=== PATIENT | male | born 1950 | race Caucasian/White ===

== ENCOUNTER 2019-10-30 11:29 | Emergency (ER) | payer MEDICARE, MEDICAID, SELFPAY ==
[2019-10-30 11:32] VITALS: BP 101/56; PULSE 63; RESP 18; TEMP 36.4; O2SAT 95; BMI 41.8
--- NOTE | 2019-10-30 11:42 | ED_ITS ---
Entered by Tania Echevarria, acting as scribe for Helen Gaspar HPI - General Adult General: Chief complaint: General Medical Stated complaint: peg tube clogged and red around site Time Seen by Provider: 10/30/19 11:42 Source: patient Mode of arrival: EMS Limitations: no limitations History of Present Illness: HPI narrative: Fred is a very nice 69-year-old male who comes in with a report of a clogged PEG tube. 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 The patient states the PEG tube is been in place for 2 months. He says just recently have a not been able to use it. He was sent here to have it evaluated and possibly changed. He denies any abdominal pain, vomiting, fever, back pain, or any other complaints. MD complaint: picc line clogged Onset (ago): month(s) (2) Associated symptoms: Deny chest pain, confusion, diaphoresis, dyspnea, headache(s), malaise, nausea, rash, palpitations, syncope or vomiting Review of Systems General: Reports: other (negative unless marked) Const: Denies: malaise or diaphoresis Eyes: Denies: change in vision or blurry vision ENMT: Denies: throat pain, painful swallowing, hoarseness, ear pain, ear discharge, Change in hearing or nasal discharge Card: Denies: chest pain, palpitations or syncope Resp: Denies: shortness of breath GI: Denies: nausea or vomiting : Denies: flank pain, difficulty urinating, painful urination, urinary frequency, urinary urgency, decreased urine ouput, urinary incontinence or blood in urine Musc: Denies: neck pain, back pain, extremity pain, extremity swelling, joint pain, joint swelling, joint warmth or joint stiffness Skin/Breast: Denies: rash Neuro: Denies: headache or confusion Endo: Denies: excessive thirst, tired all the time, cold intolerance, excessive sweating, flushing or hot flashes Prabhakar/Lymph: Denies: easy bruising, easy bleeding, petechiae or enlarged lymph nodes All/Imm: Denies: hives, throat swelling, tongue swelling, facial swelling or acute wheezing PFSH ED PFSH: Statuses (acute, chronic, etc) shown below reflect problem list status as previously entered and may not be historically accurate Medical History (Updated 10/30/19 @ 13:00 by Helen Gaspar) Congestive heart failure (Acute) COPD (chronic obstructive pulmonary disease) (Acute) Hyperlipidemia (Acute) Hypertension (Acute) Osteoarthritis (Acute) 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) Visit for feeding tube placement (Acute) Social History Smoking and tobacco status: never smoked Physical Exam Const: COMMON NORMALS: no apparent distress, oriented x3, no limitations, he althy appearing and well nourished EXAM LIMITATIONS: no altered mental status GENERAL APPEARANCE: cooperative, well kempt and well developed ORIENTATION/CONSCIOUSNESS: Yes awake HENMT: COMMON NORMALS: normocephalic, head/scalp atraumatic, hearing grossly normal bilaterally, external ears normal, EAC's normal, external nose normal and moist oral mucous membranes HEAD & SCALP: normal to inspection, normocephalic and atraumatic FACE & SINUS: normal facial exam and face symmetric NOSE: external nose normal and nares normal EXTERNAL EAR: Yes external ears normal EXTERNAL AUDITORY CANAL: EAC's normal MOUTH: oral and palatal mucosa normal and tongue normal Eye: COMMON NORMALS: PERRL, EOMs intact bilaterally, conjunctivae normal and no scleral icterus GENERAL EYE: normal appearance of both eyes and normal light reflex CONJUNCTIVA: Yes conjunctivae normal SCLERA: sclerae normal CORNEA: Yes corneas normal PUPIL: Yes PERRL DIRECT OPHTHALMOSCOPY: Yes normal light reflex Neck/C-Spine: COMMON NORMALS: full ROM, no lymphadenopathy, supple, no meningeal signs and no JVD GENERAL: Yes normal visual inspection and Yes trachea midline CERVICAL SPINE: Yes cervical ROM normal Chest: COMMONS NORMALS: inspection of chest normal and palpation of chest normal Resp: COMMON NORMALS: normal respiratory effort, no retractions, no use of accessory muscles and clear to auscultation bilaterally EFFORT & INSPECTION: Yes able to speak in complete sentences AUSCULTATION: clear to auscultation bilaterally Cardio: COMMON NORMALS: no JVD, regular rate, regular rhythm, S1 normal heart sound, S2 normal heart sound, no gallops, no clicks, no murmurs and no rub JUGULAR VENOUS DISTENTION: no JVD RATE: regular rate RHYTHM: regular rhythm HEART SOUNDS: S1 normal and S2 normal GI: COMMON NORMALS: soft to palpation, non-tender, no hepatosplenomegaly and no masses INSPECTION: Yes normal to inspection and Yes other (PEG tube in place. No signs of irritation at the skin.) PALPATION: Yes soft and Yes no hepatosplenomegaly : COMMON NORMALS: Yes no CVA tenderness BLADDER/KIDNEY EXAM: Yes no CVA tenderness Back/Pelvis: COMMON NORMALS: no CVA tenderness, thoracic and lumbar spine normal to inspection, no thoracic nor lumbar tenderness and thoraco-lumbar ROM normal Extremity: COMMON NORMALS: normal to inspection, full ROM, normal capillary refill, no joint enlargement, no clubbing, cyanosis or edema and no calf tenderness Neuro: COMMON NORMALS: oriented x3, CN's II-XII intact bilaterally, moves all extremities, no focal motor deficits and no sensory deficits noted MENINGEAL SIGNS: Yes no meningeal signs Psych: COMMON NORMALS: mental status grossly normal, thought process normal, cooperative, affect normal, speech normal and activity/motor behavior normal APPEARANCE: Yes well kempt SPEECH: Yes normal speech THOUGHT PROCESS: normal thought process Skin: COMMON NORMALS: no rashes or lesions noted, skin turgor normal, no jaundice, no petechiae and no mottling GENERAL SKIN EXAM: no rashes or lesions noted and turgor normal Course Vital Signs: Vital signs: Vital Signs Temperature 97.6 F 10/30/19 11:32 Pulse Rate 63 10/30/19 11:32 Respiratory Rate 18 10/30/19 11:32 Blood Pressure 101/56 10/30/19 11:32 Pulse Oximetry 95 10/30/19 11:32 MDM - General Adult MDM Narrative: Medical decision making narrative: Fred comes in with a report of concern of his PEG tube being clogged. His PEG tube flushes easily here. There is no evidence of leaks. He has expressed that his [facility]dc wants this changed to a different type of tube. I reviewed the case in full with Dr. Shen who placed the tube initially and he states even if there is a small pinhole leak tape can cover it and he would prefer the patient not have t his changed out as it is a new PEG tube. If there is any other problems with obstruction he can return but I feel he should be discharged back to the [facility]. I see no sign of peritonitis, vomiting, obstruction or other causes for life-threatening abdominal pain. I will go ahead and discharge the patient per Dr. Shen's recommendation. Discharge Plan Discharge Patient Disposition: [facility] Clinical Impression: Visit for feeding tube placement Condition: Stable Discharge Orders: Discharge Order (Routine); Ordered 10/30/19 Ordered By: Helen Gaspar Discharge Diet: Usual diet Discharge Activity: Resume usual activity Activity Restrictions/Additional Instructions: Please return to the ER immediately for any of the signs or symptoms listed on your discharge instruction sheets, worsening/changing of your symptoms, you are not getting better as quickly as expected, or for ANY other cause or concerns. Return to the ER if your PEG tube has any further problems. Otherwise follow-up with Dr. Shen for reevaluation. Coding Level of Care Code ED Counseling Department Chair for Chg Fwd Exam Problem Focused The documentation recorded by the Wale luu Stephanie Lyn, accurately reflects the service I personally performed and the decisions made by me, Helen Gaspar
--- NOTE | 2019-10-30 13:04 | PC.NURSE ---
peg tube flushes without difficulty, no leaking noted. area around insertion site appears neglected, with foul odor and pus like drainage. Site cleansed and covered with gauze dressing.
[2019-10-30 14:06] VITALS: BP 147/74; PULSE 76; RESP 20; O2SAT 94
[2019-10-30 14:09] VITALS: BP 142/74; PULSE 62; O2SAT 94
== END 2019-10-30 14:16 | disposition skilled nursing facility (03) ==
LOC: ER 13:07
PROVIDERS: Emergency Provider Emergency Medicine
DX: Z43.1 Encounter for attention to gastrostomy (principal); I11.0 Hypertensive heart disease with heart failure; I50.9 Heart failure, unspecified; J44.9 Chronic obstructive pulmonary disease, unspecified; E78.5 Hyperlipidemia, unspecified; M19.90 Unspecified osteoarthritis, unspecified site; Z85.818 Personal history of malignant neoplasm of other sites of lip, oral cavity, and pharynx
CPT/HCPCS: 99281

== ENCOUNTER 2019-11-04 11:39 | Day surgery (SDC) | payer MEDICARE, MEDICAID, SELFPAY ==
[2019-11-04] VITALS (8 sets, daily range): BP systolic 116–151; BP diastolic 46–72; PULSE 63–80; RESP 18–22; TEMP 36.4–36.9; O2SAT 93–100; BMI 40.7
--- NOTE | 2019-11-04 11:48 | PC.NURSE ---
Patient states he is not suicidal, just wishes he didnt have to live with cancer. wishes he was well.
--- NOTE | 2019-11-04 12:03 | ED_ITS ---
Entered by Claudia Felix, acting as scribe for Mahendra Parkinson DO HPI - General Adult General: Chief complaint: General Medical Stated complaint: Clogged PEG tube/poss. infected Time Seen by Provider: 11/04/19 11:59 Source: patient Mode of arrival: EMS Limitations: no limitations History of Present Illness: HPI narrative: 69 yo Male presents to ED with complaint of clogged PEG tube. Pt states that he needs a new PEG tube because his is clogged and has a pin hole in it. MD complaint: Clogged PEG tube Associated symptoms: Deny chest pain, dyspnea, malaise, nausea, rash or vomiting Review of Systems General: Reports: 10 or more systems reviewed and unremarkable except in HPI and below Const: Denies: malaise ENMT: Denies: throat pain, ear pain, nasal discharge or nasal congestion Card: Denies: chest pain Resp: Denies: shortness of breath GI: Denies: nausea or vomiting : Denies: flank pain, painful urination, urinary frequency or urinary urgency Skin/Breast: Denies: rash, redness or skin tenderness PFSH ED PFSH: Statuses (acute, chronic, etc) shown below reflect problem list status as previously entered and may not be historically accurate Medical History Congestive heart failure (Acute) COPD (chronic obstructive pulmonary disease) (Acute) Hyperlipidemia (Acute) Hypertension (Acute) Osteoarthritis (Acute) 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) Visit for feeding tube placement (Resolved) We will plan to discharge patient to [facility] today Social History Smoking and tobacco status: never smoked Physical Exam Const: COMMON NORMALS: no apparent distress GENERAL APPEARANCE: cooperative and comfortable ORIENTATION/CONSCIOUSNESS: Yes awake, Yes oriented to person, Yes oriented to place and Yes oriented to time HENMT: COMMON NORMALS: normocephalic, head/scalp atraumatic, hearing grossly normal bilaterally, external ears normal, EAC's normal, TM's normal bilaterally, nasal mucous membranes and turbinates normal, moist oral mucous membranes and oropharynx normal HEAD & SCALP: normocephalic and atraumatic NOSE: nasal mucous membranes and turbinates normal EXTERNAL EAR: Yes external ears normal EXTERNAL AUDITORY CANAL: EAC's normal TYMPANIC MEMBRANE: TM's normal bilaterally Eye: COMMON NORMALS: PERRL, EOMs intact bilaterally, conjunctivae normal and no scleral icterus CONJUNCTIVA: Yes conjunctivae normal PUPIL: Yes PERRL Neck/C-Spine: COMMON NORMALS: full ROM, no lymphadenopathy, supple and no JVD Lymph: LYMPHATIC: no lymphadenopathy noted and no lymphedema noted Resp: COMMON NORMALS: normal respiratory effort, no retractions, no use of accessory muscles and clear to auscultation bilaterally AUSCULTATION: clear to auscultation bilaterally Cardio: COMMON NORMALS: no JVD, regular rate, regular rhythm and no murmurs RATE: regular rate RHYTHM: regular rhythm GI: COMMON NORMALS: normal to inspection, nondistended, normoactive bowel sounds, soft to palpation, non-tender, no hepatosplenomegaly and no masses PALPATION: Yes soft and Yes no hepatosplenomegaly Extremity: COMMON NORMALS: normal to inspection, normal capillary refill, no clubbing, cyanosis or edema, no calf tenderness and no pedal edema Neuro: SENSORIUM/ORIENTATION: Yes oriented to person, Yes oriented to place and Yes oriented to time Skin: COMMON NORMALS: no rashes or lesions noted GENERAL SKIN EXAM: no rashes or lesions noted Course ED course: Examination of the abdomen there is a lot of mucousy buildup around the stoma for the PEG tube very mild localized erythema no induration do not get the sense its its infected. Patient reports it has been in place for 4 to 5 months at least. It was removed and then immediately attempted to place a PEG tube with the balloon we are not able to successfully do so after several attempts I contacted contacted Dr. Reina. Dr. Miguel came to the exam room he made multiple attempts as well with coud? catheter is red rubber Peters's as well as the ED to PEG tube and he could not get it replaced. He is going to go and take the patient to outpatient surgery do an EGD to replace the tube. He was discharged from the emergency room and transferred over to outpatient surgery. Vital Signs: Vital signs: Vital Signs Temperature 98.3 F 11/05/19 10:10 Pulse Rate 69 11/05/19 10:10 Respiratory Rate 18 11/05/19 10:10 Blood Pressure 124/62 11/05/19 10:10 Pulse Oximetry 93 11/05/19 10:10 Discharge Plan Discharge Patient Disposition: Home, Self-Care Clinical Impression: Visit for feeding tube placement Condition: Stable Discharge Orders: Discharge Order (Routine); Ordered 11/04/19 Ordered By: Evan Miguel Discharge Diet: per previous recs including PEG tube feeds Discharge Activity: Resume usual activity Discharge Date/Time: 11/04/19 13:51 Sign Out Sign Out Data: Patient Sign Out occurred on 11/04/19 at 13:29. Patient's care was discussed, and care was transferred from Mahendra Parkinson DO to Helen Gaspar. Sign Out Comment: holding for outpt surgery Last updated by Maehndra Parkinson DO at 11/04/19 13:19 Coding Level of Care Code ED Postal Transportation Clerk for Chg Fwd Exam Problem Focused The documentation recorded by the Isidro luu Carmen, accurately reflects the service I personally performed and the decisions made by , Mahendra Parkinson DO Nov 04, 2019 13:35
--- NOTE | 2019-11-04 13:48 | P.ANES_ITS ---
Pre-Anesthetic Assessment Pre-Anesthetic Assessment: Height/Weight: Height 1.91 m Weight 147.871 kg Temp Pulse Resp BP Pulse Ox 97.6 F 63 22 H 128/70 93 11/04/19 11:43 11/04/19 11:43 11/04/19 11:43 11/04/19 11:43 11/04/19 11:43 Preop Diagnosis: dislodged PEG tube Familial anesthetic complications: No trouble Was Beta Guerda taken within 24 hours: Yes Last intake: Yogurt cup at 1000 today Social: Social History: No alcohol and No tobacco Exam: Pre-Anes Outpt Exam: alert, oriented x 3, clear to auscultation bilaterally and regular rate & rhythm Airway: Cervical ROM: WNL MP: 4 Additional comments: edentulous Pulmonary: Pulmonary: Asthma and COPD CV/HEM: CV/HEM: CHF and HTN : : None reported Hepatic: Hepatic: None reported GI: Comments: tonsillar cancer - requirng peg tube. has trouble swallowing due to pain/burning Metabolic: Metabolic: Morbid obesity and Thyroid Musc/skel: Comments: patient is in wheelchair - because of weakness (unknown etiology) Neuropsych: Neuropsych: None reported Anesthetic Plan: ASA status: III Anesthesia: General Risk of > 500 ml blood loss (7ml/kg in children): No Other Pertinent Information: Patient not adequate NPO, spoke with surgeon trevon joy waiting at least 6 hours. Concern for loosing the tract and patient therefore requiring more invasive procedure if too much time elapses. 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
--- NOTE | 2019-11-04 14:26 | P.HP_ITS ---
Providers/Chief Complaint Primary Care Provider: Loyd Urbina MD Chief Complaint: Clogged PEG tube/poss. infected History of Present Illness Fred Watson is a 69 year old male patient [facility] resident presents to the emergency department with dysfunctional feeding tube, that he had placed in the form of a PEG tube back in June 2019, patient gives history of tonsillar cancer, that he had to receive radiation and last dose was June 17, 2019, he developed burning sensation in his throat and he is not able to swallow with ease so that is why he got the PEG tube. Multiple attempts was done by Dr. Estrada in the ER and myself to try to follow the track and put another new feeding tube in but that was not successful. So I did certified travel counselor the patient to have it done under direct visualization using an EGD. Review of Systems Const: Denies: fever, chills, body aches or malaise Card: Denies: chest pain Resp: Denies: shortness of breath GI: Denies: abdominal pain, nausea, vomiting, difficulty swallowing, diarrhea, constipation or blood in stool Neuro: Denies: headache Psych: Denies: anxiety or depression Medications/Allergies Home Medications Medication Instructions Recorded Confirmed Last Taken Type hydrocortisone 1 applic TOPICAL DAILY PRN 11/04/19 11/04/19 Unknown History nut.tx,spec.frm,l-fr,iron-fos 60 ea PO TID 11/04/19 11/04/19 Unknown History [TwoCal HN] Allergies Allergy/AdvReac Type Severity Reaction Status Date / Time neomycin Allergy ALGY-Rash Verified 10/30/19 11:40 Sulfa (Sulfonamide Allergy ALGY-Anaphy Verified 10/30/19 11:40 Antibiotics) laxis PFSH Acute PFSH: Statuses (acute, chronic, etc) shown below reflect problem list status as previously entered and may not be historically accurate Medical History Congestive heart failure (Acute) COPD (chronic obstructive pulmonary disease) (Acute) Hyperlipidemia (Acute) Hypertension (Acute) Osteoarthritis (Acute) 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) Visit for feeding tube placement (Acute) Social History Smoking and tobacco status: never smoked Vitals/I&O/Wt Last Vital Signs Temp 98.4 F 11/04/19 13:54 Pulse 65 11/04/19 13:54 Resp 18 11/04/19 13:54 BP 119/46 11/04/19 13:54 Pulse Ox 94 11/04/19 13:54 Weight last 48 hrs Weight 326 lb Physical Exam Const: COMMON NORMALS: no apparent distress and oriented x3 GENERAL APPEARANCE: cooperative ORIENTATION/CONSCIOUSNESS: Yes awake, Yes oriented to person, Yes oriented to place and Yes oriented to time HENMT: COMMON NORMALS: normocephalic HEAD & SCALP: normocephalic Eye: COMMON NORMALS: PERRL and no scleral icterus PUPIL: Yes PERRL Lymph: LYMPHATIC: no lymphadenopathy noted Chest: COMMONS NORMALS: inspection of chest normal Resp: COMMON NORMALS: normal respiratory effort and clear to auscultation bilaterally AUSCULTATION: clear to auscultation bilaterally Cardio: COMMON NORMALS: S1 normal heart sound and S2 normal heart sound; negative for no murmurs HEART SOUNDS: S1 normal and S2 normal GI: COMMON NORMALS: soft to palpation; negative for no hepatosplenomegaly INSPECTION: Yes normal to inspection PALPATION: Yes soft, No firm, No tender, No guarding, No rigid, No no hepatosplenomegaly and Yes other (Site of the feeding tube at the upper abdomen with track) OTHER: Morbidly obese Neuro: COMMON NORMALS: oriented x3 SENSORIUM/ORIENTATION: Yes oriented to person, Yes oriented to place and Yes oriented to time Psych: COMMON NORMALS: mental status grossly normal Skin: COMMON NORMALS: no rashes or lesions noted GENERAL SKIN EXAM: no rashes or lesions noted A&P Assessment and plan (1) Visit for feeding tube placement: Plan of care; After thorough history and physical examination and reviewing the chart, plan to perform a diagnostic esophagogastroduodenoscopy and possible biopsy in the operating room due patient's medical comorbioddities including morbid Obesity and potential airway compromise the plan to replace the feeding tube Informed consent per chart were,Indications, risks, benefits, and alternatives were all discussed with the patient and did agree to proceed. Status: Acute Code(s): Z46.59 - Encounter for fitting and adjustment of other gastrointestinal appliance and device Attestations Medical Necessity Statement*: Outpatient in a bed Coding Level of Care Code Acute Manufacturing Sales Representative for Chg Fwd Diagnoses Visit for feeding tube placement Z46.59
[2019-11-04] MEDS: sodium chloride 0.9% 1,000 ML 30 ML IV (14:33)
[2019-11-04] MEDS: temazepam 15 mg Capsule PO (20:04)
[2019-11-04] MEDS: metoprolol tartrate 50 mg Tablet PO (20:04)
[2019-11-04] MEDS: docusate sodium 100 mg Capsule 200 MG PO (20:04)
[2019-11-04] MEDS: nystatin 100,000 unit/mL UDC 5 mL 500000 UNIT PO (20:14)
--- NOTE | 2019-11-05 06:01 | P.PN_ITS ---
Subjective Subjective: Interval history: Patient overall feels better, patient was kept in the hospital due to logistics as there was a ride but there was no oxygen supply, that I elected for patient's utmost safety to keep him overnight as an outpatient in a bed. He had uneventful night and the PEG tube was reinserted Patient does not feel hungry today Vitals/I&O/Wt Last Vital Signs Temp 97.5 F L 11/04/19 17:05 Pulse 74 11/04/19 17:05 Resp 20 H 11/04/19 17:05 BP 116/47 11/04/19 17:05 Pulse Ox 96 11/04/19 17:05 11/04/19 11/04/19 11/05/19 14:59 22:59 06:59 Intake Total 0 / 0 Output Total 300 / 300 25 / 325 Balance -300 / -300 -25 / -325 Weight last 48 hrs Weight 326 lb Physical Exam Const: COMMON NORMALS: no apparent distress and oriented x3 GENERAL APPEARANCE: cooperative ORIENTATION/CONSCIOUSNESS: Yes awake, Yes oriented to person, Yes oriented to place and Yes oriented to time HENMT: COMMON NORMALS: normocephalic HEAD & SCALP: normocephalic Eye: COMMON NORMALS: PERRL and no scleral icterus PUPIL: Yes PERRL Chest: COMMONS NORMALS: inspection of chest normal Resp: COMMON NORMALS: normal respiratory effort and clear to auscultation bilaterally AUSCULTATION: clear to auscultation bilaterally Cardio: COMMON NORMALS: S1 normal heart sound and S2 normal heart sound; negative for no murmurs HEART SOUNDS: S1 normal and S2 normal GI: COMMON NORMALS: soft to palpation; negative for no hepatosplenomegaly INSPECTION: Yes normal to inspection PALPATION: Yes soft, No firm, No tender, No guarding, No rigid, No no hepatosplenomegaly and Yes other (PEG tube in place skin level at 8 cm) Neuro: COMMON NORMALS: oriented x3 SENSORIUM/ORIENTATION: Yes oriented to person, Yes oriented to place and Yes oriented to time Psych: COMMON NORMALS: mental status grossly normal Skin: COMMON NORMALS: no rashes or lesions noted GENERAL SKIN EXAM: no rashes or lesions noted A&P Assessment and plan (1) Visit for feeding tube placement: From surgical standpoint of view [facility] can [facility] PEG tube instructions and education Patient can resume PEG tube feeds All questions have been answered and all concerns have been addressed to patient's satisfaction. Logistics will be addressed to make sure patient's transportation is safe including oxygen supply Status: Resolved Code(s): Z46.59 - Encounter for fitting and adjustment of other gastrointestinal appliance and device Attestations Medical Necessity Statement*: OutPatient in a bed Coding Level of Care Code Acute Airport Operations Specialist for Chg Fwd Diagnoses Visit for feeding tube placement Z46.59
--- NOTE | 2019-11-05 06:13 | PM.SDS ---
Short Stay Summary Providers Date of Admit/Discharge: 11/05/19 Attending Provider: Evan Miguel MD Primary Care Provider: Loyd Urbina MD Chief Complaint: Clogged PEG tube/poss. 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 Patient undergone the procedure without event and he did receive a new PEG tube 20 Estonian Review of Systems Const: Denies: fever, chills, body aches or malaise Card: Denies: chest pain Resp: Denies: shortness of breath GI: Denies: abdominal pain, nausea, vomiting, difficulty swallowing, diarrhea, constipation or blood in stool Neuro: Denies: headache Psych: Denies: anxiety or depression Home Meds/Allergies Home Medications and Allergies Home Medications Medication Instructions Recorded Confirmed Type Magic Mouthwash 5 ml PO Q6H PRN 10/30/19 11/04/19 History acetaminophen [Tylenol] 325 mg PO Q4H PRN 10/30/19 11/04/19 History albuterol sulfate 1 puff INHALATION 6XD PRN 10/30/19 11/04/19 History alum-mag hydroxide-simeth [Mylanta 30 ml PO TID PRN 10/30/19 11/04/19 History Maximum Strength] aripiprazole [Abilify] 5 mg PO BEDTIME 10/30/19 11/04/19 History aspirin 81 mg PO DAILY 10/30/19 11/04/19 History bisacodyl [Dulcolax (bisacodyl)] 10 mg [place] DAILY PRN 10/30/19 11/04/19 History bisacodyl [Dulcolax (bisacodyl)] 20 mg PO DAILY PRN 10/30/19 11/04/19 History budesonide 0.5 mg INHALATION BID 10/30/19 11/04/19 History docusate sodium [Colace] 200 mg PO BEDTIME 10/30/19 11/04/19 History escitalopram oxalate [Lexapro] 20 mg PO DAILY 10/30/19 11/04/19 History fluconazole [Diflucan] 150 mg PO DAILY 10/30/19 11/04/19 History furosemide [Lasix] 40 mg PO DAILY 10/30/19 11/04/19 History ipratropium-albuterol 3 ml INHALATION DAILY PRN 10/30/19 11/04/19 History ipratropium-albuterol [Combivent 1 puff INHALATION QID 10/30/19 11/04/19 History Respimat] levothyroxine 100 mcg PO DAILY 10/30/19 11/04/19 History magnesium citrate 300 ml PO BID PRN 10/30/19 11/04/19 History magnesium hydroxide [Milk of 30 ml PO BID PRN 10/30/19 11/04/19 History Magnesia] metoprolol tartrate 50 mg PO BID 10/30/19 11/04/19 History nystatin 5 ml PO QID 10/30/19 11/04/19 History ondansetron HCl [Zofran] 4 mg PO Q8H PRN 10/30/19 11/04/19 History oxycodone 10 mg PO Q6H PRN 10/30/19 11/04/19 History pantoprazole 40 mg PO DAILY 10/30/19 11/04/19 History temazepam 15 mg PO BEDTIME 10/30/19 11/04/19 History hydrocortisone 1 applic TOPICAL DAILY PRN 11/04/19 11/04/19 History nut.tx,spec.frm,l-fr,iron-fos 60 ea PO TID 11/04/19 11/04/19 History [TwoCal HN] Allergies Allergy/AdvReac Type Severity Reaction Status Date / Time neomycin Allergy ALGY-Rash Verified 10/30/19 11:40 Sulfa (Sulfonamide Allergy ALGY-Anaphy Verified 10/30/19 11:40 Antibiotics) laxis PFSH Acute PFSH: Statuses (acute, chronic, etc) shown below reflect problem list status as previously entered and may not be historically accurate Medical History Congestive heart failure (Acute) COPD (chronic obstructive pulmonary disease) (Acute) Hyperlipidemia (Acute) Hypertension (Acute) Osteoarthritis (Acute) 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) Visit for feeding tube placement (Resolved) Social History Smoking and tobacco status: never smoked Vitals/I&O/Wt Last Vital Signs Temp 97.5 F L 11/04/19 17:05 Pulse 74 11/04/19 17:05 Resp 20 H 11/04/19 17:05 BP 116/47 11/04/19 17:05 Pulse Ox 96 11/04/19 17:05 11/04/19 11/04/19 11/05/19 14:59 22:59 06:59 Intake Total 0 / 0 Output Total 300 / 300 25 / 325 Balance -300 / -300 -25 / -325 Weight last 48 hrs Weight 326 lb Physical Exam Const: COMMON NORMALS: no apparent distress and oriented x3 GENERAL APPEARANCE: cooperative ORIENTATION/CONSCIOUSNESS: Yes awake, Yes oriented to person, Yes oriented to place and Yes oriented to time Resp: COMMON NORMALS: normal respiratory effort and clear to auscultation bilaterally AUSCULTATION: clear to auscultation bilaterally GI: COMMON NORMALS: soft to palpation; negative for no hepatosplenomegaly INSPECTION: Yes normal to inspection PALPATION: Yes soft, No firm, No tender, No guarding, No rigid and No no hepatosplenomegaly Neuro: COMMON NORMALS: oriented x3 SENSORIUM/ORIENTATION: Yes oriented to person, Yes oriented to place and Yes oriented to time Psych: COMMON NORMALS: mental status grossly normal Skin: GENERAL SKIN EXAM: other (PEG tube insertion at 8 cm skin level without complication) SSS Data Data Completed and Pending: Pending at discharge Category Date Time Status H. Pylori / BRITTANY T est Routine Lab 11/04/19 15:56 Ordered Diagnoses at Discharge Discharge Diagnosis (1) Visit for feeding tube placement: Status: Resolved Problem details: We will plan to discharge patient to [facility] today Discharge Plan Discharge Patient Disposition: Home, Self-Care Condition: Stable Prescriptions: No Action furosemide [Lasix] 40 mg Tablet 40 mg PO DAILY RF: 0 ipratropium-albuterol 0.5 mg-3 mg(2.5 mg base)/3 mL Solution For Nebulization 3 ml INHALATION DAILY PRN (Reason: Shortness Of Breath) RF: 0 ondansetron HCl [Zofran] 4 mg Tablet 4 mg PO Q8H PRN (Reason: Nausea) RF: 0 levothyroxine 100 mcg Tablet 100 mcg PO DAILY RF: 0 temazepam 15 mg Capsule 15 mg PO BEDTIME RF: 0 magnesium hydroxide [Milk of Magnesia] 400 mg/5 mL Suspension 30 ml PO BID PRN (Reason: Constipation) RF: 0 bisacodyl [Dulcolax (bisacodyl)] 10 mg Suppository 10 mg [place] DAILY PRN (Reason: Constipation) RF: 0 pantoprazole 40 mg Tablet,Delayed Release (Dr/Ec) 40 mg PO DAILY RF: 0 metoprolol tartrate 50 mg Tablet 50 mg PO BID RF: 0 docusate sodium [Colace] 100 mg Capsule 200 mg PO BEDTIME RF: 0 budesonide 0.5 mg/2 mL Suspension For Nebulization 0.5 mg INHALATION BID RF: 0 magnesium citrate Solution 300 ml PO BID PRN (Reason: Constipation) RF: 0 aspirin 81 mg Tablet,Chewable 81 mg PO DAILY RF: 0 bisacodyl [Dulcolax (bisacodyl)] 5 mg Tablet,Delayed Release (Dr/Ec) 20 mg PO DAILY PRN (Reason: Constipation) RF: 0 albuterol sulfate 90 mcg/actuation Hfa Aerosol Inhaler 1 puff INHALATION 6XD PRN (Reason: Shortness Of Breath) RF: 0 Mylanta Maximum Strength 400-400-40 mg/5 mL Suspension 30 ml PO TID PRN (Reason: Gastric Reflux) RF: 0 escitalopram oxalate [Lexapro] 20 mg Tablet 20 mg PO DAILY RF: 0 aripiprazole [Abilify] 5 mg Tablet 5 mg PO BEDTIME RF: 0 acetaminophen [Tylenol] 325 mg Capsule 325 mg PO Q4H PRN (Reason: Pain) RF: 0 oxycodone 10 mg Tablet 10 mg PO Q6H PRN (Reason: Pain) RF: 0 Combivent Respimat 20-100 mcg/actuation Mist 1 puff INHALATION QID RF: 0 Magic Mouthwash 5 ml PO Q6H PRN (Reason: MOUTH SORES) RF: 0 nystatin 100,000 unit/mL Suspension 5 ml PO QID RF: 0 fluconazole [Diflucan] 150 mg Tablet 150 mg PO DAILY RF: 0 hydrocortisone 1 % Cream 1 applic TOPICAL DAILY PRN (Reason: buttocks) RF: 0 TwoCal HN 0.08-2 gram-kcal/mL Liquid 60 ea PO TID RF: 0 Discharge Orders: Discharge Order (Routine); Ordered 11/04/19 Ordered By: Evan Miguel Discharge Diet: per previous recs including PEG tube feeds Discharge Activity: Resume usual activity Activity Restrictions/Additional Instructions: Discharge to outpatient surgery. Dr. Huertas will replace the feeding tube endoscopically. Patient undergone placement of PEG tube and will be able to be discharged to [facility] again, PEG tube care instructions Attestations Medical Necessity Statement*: Outpatient in a bed Time Spent in Patient Care*: less than 30 min Quality Metrics Clinical Quality Measures: During this hospital stay, did patient experience: None Coding Level of Care Code Acute Front Office Administrator for [facility] Fwd Diagnoses Visit for feeding tube placement Z46.59
[2019-11-05 08:27] VITALS: PULSE 68; RESP 17; O2SAT 94
[2019-11-05] MEDS: budesonide 0.5 mg/2 mL Neb INHALATION (08:30)
[2019-11-05] MEDS: ipratropium-albuterol 3 mL Neb INHALATION (08:31)
[2019-11-05 08:34] VITALS: PULSE 72
[2019-11-05] MEDS: fluconazole 100 mg Tablet 150 MG PO (08:43)
[2019-11-05] MEDS: escitalopram 10 mg Tablet 20 MG PO (08:44)
[2019-11-05] MEDS: FUROsemide 40 mg Tablet PO (08:44)
[2019-11-05] MEDS: levothyroxine 100 mcg Tablet PO (08:44)
[2019-11-05] MEDS: aspirin 81 mg Chew Tablet PO (08:44)
[2019-11-05] MEDS: pantoprazole DR 40 mg Tablet PO (08:44)
[2019-11-05] MEDS: ARIPiprazole 10 mg Tablet 5 MG PO (08:44)
[2019-11-05] MEDS: metoprolol tartrate 50 mg Tablet PO (08:44)
[2019-11-05] MEDS: nystatin 100,000 unit/mL UDC 5 mL 500000 UNIT PO ×2 (08:45→11:59)
[2019-11-05 10:10] VITALS: BP 124/62; PULSE 69; RESP 18; TEMP 36.8; O2SAT 93
--- NOTE | 2019-11-05 10:54 | PC.CHAP ---
Pastoral Care Encounter/Spiritual Assessment Type of Contact [] Declined field producer visit [] Patient/Family/Request visit [] Outpatient visit [x] Follow-up visit [] Physician referral [] Code/Alert [] Routine visit [] Staff referral [] Actively dying [] Patient sleeping [] Family support [] [] Out of room [] Palliative care [] [] Receiving care in room [] Pre-surgical visit [] Trauma [] Long length of stay [] ICU visit [] Other: Relational/Emotional Strength [] Patient feels connected with others/family/visitors/staff [] Distress [] Loneliness/isolation [] Abandonment Spirituality of Patient [] Person of Catherine [] Attends Mormonism of their Catherine [] Believes in Prayer [] Reads Bible or Jew materials [] There are Spiritual issues to be addressed [employer] Interventions [] Prayer [] Active listening [] Non-anxious presence [] Spiritual/emotional support [] Crisis/trauma care [] Spiritual counseling [] Bereavement support [] Provided bereavement packet [] Provided Bible/devotional materials [] Provided toy/stuffed animal, coloring book to patient or family member [] Completed spiritual assessment [] Provided Communion [] Anointing/Ewing [] Salvation [] Other: Impact on Illness or Injury [] Angry [] Fearful [] Anxious [] Often cries [] Exhaustion [] Unable to work [] Unable to attend caodaism [] Unable to walk/stand [] Unable to read [] Unable to drive [] Unable to eat/drink [] Unable to sleep [] Unable to be with family [] Other: Summary Time spent with patient
[2019-11-05 11:40] VITALS: BP 134/55; PULSE 70; RESP 18; TEMP 36.6; O2SAT 93
[2019-11-05 13:15] LABS: H. Pylori / CLO Test Negative
[2019-11-05 14:30] VITALS: RESP 18; TEMP 36.6; O2SAT 93
== END 2019-11-05 14:31 | disposition home or self-care (01) ==
LOC: ER 13:29 → OR 13:35 → OPMS 11-07 10:25
PROVIDERS: Emergency Provider Emergency Medicine; PCP Internal Medicine; Visit Provider Surgery
PROC: 0DH63UZ Insertion of Feeding Device into Stomach, Percutaneous Approach (ICD-10-PCS; CPT 43246; principal; 2019-11-04 14:30)
DX: Z46.59 Encounter for fitting and adjustment of other gastrointestinal appliance and device (principal); K94.23 Gastrostomy malfunction; Z92.3 Personal history of irradiation; Z85.818 Personal history of malignant neoplasm of other sites of lip, oral cavity, and pharynx; Z79.82 Long term (current) use of aspirin; Z79.891 Long term (current) use of opiate analgesic; I11.0 Hypertensive heart disease with heart failure; I50.9 Heart failure, unspecified; J44.9 Chronic obstructive pulmonary disease, unspecified; E78.5 Hyperlipidemia, unspecified; M19.90 Unspecified osteoarthritis, unspecified site; K29.70 Gastritis, unspecified, without bleeding
CPT/HCPCS: 43235; 12345; 87077; 94640; 99281; J0330; J0690; J2001; J2405; J2704; J3490; J7030; J7626